=== PATIENT | female | born 1975 | race Caucasian/White ===

== ENCOUNTER 2017-03-26 13:58 | Emergency (ER) | payer BC, MEDICAID ==
[~2017-03-26] VITALS: Ht 170.2 cm; Wt 91.0 kg
[2017-03-26] MEDS ORDERED: KETOROLAC 60MG/2ML VIAL IM ONE (15:30)
[2017-03-26 15:32] VITALS: BP 131/85
== END 2017-03-26 16:39 | disposition home or self-care (01) ==
LOC: ER 14:23
DX: G89.29 Other chronic pain (principal); M79.672 Pain in left foot
CPT/HCPCS: 73630; 96372; 99284; J1885

== ENCOUNTER 2017-04-14 20:49 | Emergency (ER) | payer BC, MEDICAID ==
[2017-04-14] MEDS ORDERED: KETOROLAC 60MG/2ML VIAL IM ONE (21:15)
== END 2017-04-14 21:44 | disposition home or self-care (01) ==
LOC: ER 21:00
DX: M17.0 Bilateral primary osteoarthritis of knee (principal)
CPT/HCPCS: 96372; 99283; J1885

== ENCOUNTER 2017-09-27 15:03 | Emergency (ER) | payer BC, MEDICAID ==
[~2017-09-27] VITALS: Ht 172.7 cm; Wt 100.0 kg
[2017-09-27 15:16] VITALS: BP 114/83
[2017-09-27] MEDS ORDERED: CEFTRIAXONE SODIUM 1 G/VIAL IM ONE (16:45)
[2017-09-27] MEDS ORDERED: DEXAMETHASONE 4MG TABLET PO ONE (16:45)
[2017-09-27] MEDS ORDERED: LIDOCAINE HCL 1% 20ML VIAL (Pyxis) INJ INFIL ONE (16:45)
[2017-09-27] MEDS ORDERED: LIDOCAINE HCL/PF 1% 10 MG/ML 5ML VIAL IJ NR (17:00)
== END 2017-09-27 18:00 | disposition home or self-care (01) ==
LOC: ER 17:43
DX: J02.9 Acute pharyngitis, unspecified (principal)
CPT/HCPCS: 87070; 87430; 96372; 99284; J0696; J3490; Z7610; J8540

== ENCOUNTER 2018-04-22 19:44 | Emergency (ER) | payer BC, MEDICAID ==
[~2018-04-22] VITALS: Ht 170.2 cm; Wt 91.0 kg
[2018-04-22] MEDS ORDERED: ONDANSETRON HCL 4MG/2ML INJ IV STA (20:18)
[2018-04-22] MEDS ORDERED: SODIUM CHLORIDE 0.9% 1,000 ML IV ONE (20:18)
[2018-04-22] MEDS ORDERED: MECLIZINE 25MG TABLET PO ONE (20:30)
[2018-04-22 21:10] LABS: BASOPHILS % 1.5 % (0.0-2.0); EOSINOPHILS % 2.9 % (0.0-5.0); HEMATOCRIT. 40.1 % (36.0-48.0); HEMOGLOBIN. 13.5 g/dL (12.0-16.0); LYMPHOCYTES % 28.1 % (20.0-50.0); MEAN CORPUSCULAR HEMOGLOBIN 31.6 pg (28.0-32.0); MEAN CORPUSCULAR VOLUME 93.4 fL (81.0-99.0); MEAN PLATELET VOLUME 7.6 fl (7.4-10.4); MONOCYTES % 5.8 % (2.0-8.0); NEUTROPHILS % 61.7 % (40.0-76.0); PLATELET 335 x1000/uL (130-400); RED BLOOD CELL COUNT 4.29 mill/uL (4.2-5.4); RED CELL DISTRIBUTION WIDTH 13.5 % (11.6-14.6)
[2018-04-22 21:17] LABS: CHLORIDE 104 mEq/L (98-107)
[2018-04-22 21:20] LABS: CLARITY URINE CLEAR (CLEAR); COLOR URINE YELLOW (YELLOW); KETONES URINE NEGATIVE (NEGATIVE); LEUKOCYTE ESTERASE URINE NEGATIVE (NEGATIVE); NITRITE URINE NEGATIVE (NEGATIVE); OCCULT BLOOD URINE NEGATIVE (NEGATIVE); PROTEIN URINE NEGATIVE (NEGATIVE); SPECIFIC GRAVITY URINE 1.026 (1.005-1.030); UROBILINOGEN URINE 0.2 E.U./dL (0.2-1.0)
[2018-04-22 21:20] LABS: PARTIAL THROMBOPLASTIN TIME 27.3 sec (23.4-31.0); PROTHROMBIN TIME 9.8 sec (9.1-11.1)
[2018-04-22 21:28] LABS: B-HCG QUANTITATIVE < 1 mIU/mL (<3)
[2018-04-22] MEDS ORDERED: POTASSIUM CHLORIDE 20MEQ TABLET SR PO ONE (22:30)
[2018-04-22] MEDS ORDERED: KETOROLAC 30MG/ML VIAL IV ONE (23:15)
[2018-04-23 00:15] VITALS: BP 121/78
== END 2018-04-23 00:35 | disposition home or self-care (01) ==
LOC: ER 19:44
DX: R42 Dizziness and giddiness (principal); E87.6 Hypokalemia; R20.2 Paresthesia of skin; M86.9 Osteomyelitis, unspecified; M19.90 Unspecified osteoarthritis, unspecified site
CPT/HCPCS: 36415; 70450; 71045; 80048; 81003; 81025; 83880; 84484; 84702; 85025; 85610; 85730; 93005; 96361; 96374; 96375; 99284; J1885; J2405; J7030; J8597